=== PATIENT | male | born 1955 | race Caucasian/White ===

== ENCOUNTER 2021-09-16 06:16 | Day surgery (SDC) | payer MEDICARE ==
[~2021-09-16] VITALS: Ht 182.9 cm; Wt 95.2 kg
[2021-09-16] MEDS ORDERED: MS CONTIN 660 MG/TAB PO (06:31)
[2021-09-16] MEDS ORDERED: NORCO 325 MG-101 TAB PO (06:32)
[2021-09-16 06:54] VITALS: BP 156/83; PULSE 50; TEMP 98.3
[2021-09-16 08:30] VITALS: BP 114/72; PULSE 59; TEMP 97.7
[2021-09-16 08:45] VITALS: BP 121/67; PULSE 49
[2021-09-16 09:00] VITALS: BP 124/63; PULSE 60
[2021-09-16 09:15] VITALS: BP 120/63; PULSE 48
--- NOTE | 2021-09-16 09:55 | NUR ---
0830 Pt returns from endo procedure via cart and RN assist to [facility] [place] [facility]. Pt ambulates from cart to rest room with RN assist. Pt's remains with pt in restroom. This RN remains outside restroom to assist with ambulation back to [facility] [place] [facility]. 0840 Monitors on and alarms set. Call light within reach. Report received from RICARDO Correa. Pt alert and oriented. Pt requests coffee and crackers. Pt denies any "out of the ordinary" pain or any nausea. 0850 Pt taking food and drink well. No complications noted. 0930 Discharge instructions given to pt and . All questions answered to their satisfaction. Handed to pt is discharge information. 0955 Pt transferred out of the hospital via wheelchair and this RN assist, to private vehicle driven by pt's .
== END 2021-09-16 09:55 | disposition home or self-care (01) ==
LOC: SDCO 06:16
DX: Z12.11 Encounter for screening for malignant neoplasm of colon (principal); D12.4 Benign neoplasm of descending colon; D12.8 Benign neoplasm of rectum; Z86.010 Personal history of colon polyps; I10 Essential (primary) hypertension; Z79.899 Other long term (current) drug therapy; G89.29 Other chronic pain
CPT/HCPCS: J2704; J7030

== ENCOUNTER 2024-08-22 07:17 | Day surgery (SDC) | payer MEDICARE ==
[~2024-08-22] VITALS: Ht 182.9 cm; Wt 88.0 kg
[~2024-08-22 07:17] MED LIST: LR 1,000 ML IV SCH; LYRICA 25MG CAP25 MG PO; MS CONTIN 660 MG/TAB PO; NORCO 325 MG-101 TAB PO; Ondansetron 4 MG/2 ML VIAL IV PRN; SEROQUEL 2525 MG/TAB PO
[2024-08-22] MEDS ORDERED: MS CONTIN 115 MG/TAB PO (08:07)
[2024-08-22] MEDS ORDERED: Lidocaine PF 2% (20 MG/ML) 5 ML VIAL ONE (09:07)
[2024-08-22] MEDS ORDERED: Glycopyrrolate 0.2 MG/ML 1 ML VIAL ONE (09:16)
[2024-08-22 09:33] VITALS: BP 131/65; PULSE 48; TEMP 97.8
[2024-08-22 09:50] VITALS: BP 94/64; PULSE 61; TEMP 97.8
[2024-08-22 10:05] VITALS: BP 113/65; PULSE 57
--- NOTE | 2024-08-22 10:11 | NUR ---
Pt returns from procedure at 0950 via cart. Assisted to recliner with assist of two. VSS. ta bedside. Coffee and shabnam crackers given, tolerating without issue. 1007- Dischrage instructions and education given to patient and , questions answered. Pt up to get dressed at 1010.
--- NOTE | 2024-08-22 10:25 | NUR ---
Pt dressed at 1010. Denies any complaints, ready to discharge. IV removed at 1015. Pt wheeled down to wifes car via w/c at 1020, accompanied by this nurse.
== END 2024-08-22 10:20 | disposition home or self-care (01) ==
LOC: SDCO 07:17
DX: Z12.11 Encounter for screening for malignant neoplasm of colon (principal); D12.2 Benign neoplasm of ascending colon; D12.5 Benign neoplasm of sigmoid colon; K57.30 Diverticulosis of large intestine without perforation or abscess without bleeding; K63.5 Polyp of colon; I10 Essential (primary) hypertension
CPT/HCPCS: J2704; J7120